=== PATIENT | male | born 1975 | race Caucasian/White ===

== ENCOUNTER 2018-08-09 21:28 | Emergency (ER) | payer MEDICAID, OTHER ==
[~2018-08-09] VITALS: Ht 182.9 cm; Wt 104.3 kg
[2018-08-09] MEDS ORDERED: NORVASC10 MG ORAL (21:36)
[2018-08-09] MEDS ORDERED: HYDROCHLOROTHIA50 MG ORAL (21:36)
[2018-08-09] MEDS ORDERED: SEROQUEL50 MG ORAL (21:36)
[2018-08-09] MEDS ORDERED: PAXIL30 MG ORAL (21:36)
--- NOTE | 2018-08-09 21:40 | NUR ---
ER Nurse Note: Pt came from home c/o constipation since 08/04/18. Pt stated he has the urge to poop but unable to. Pt states 10/10 pain. Abd round, firm. Bowel sounds heard in all quadrants. ERMD at pt side, will continue to montior.
--- NOTE | 2018-08-09 21:42 | Emergency Room Report ---
History of Present Illness General Chief Complaint: Constipation Source: Patient Present Illness HPI Is a 43-year-old male with a history of hypertension and previous gastric bypass. He presents with chief complaint of constipation. He said he hasn't had a bowel movement for the last 5 days. Has the urge but painful to have a bowel movement. No fever or chills. Eating drinking normally. No nausea no vomiting. Tried [id number] Colace without any relief. Denies any recent opioid use. Denies any other complaint. Allergies: Coded Allergies: ACETAMINOPHEN (Verified Allergy, Unknown, 08/09/18) MORPHINE (Verified Allergy, Unknown, 08/09/18) OXYCODONE (Verified Allergy, Unknown, 08/09/18) Patient History Past Medical History: see triage record, old chart reviewed, HTN Past Surgical History: other Pertinent Family History: none Social History: Denies: smoking Immunizations: other Reviewed Nursing Documentation: PMH: Agreed; PSxH: Agreed Nursing Documentation-PMH Past Medical History: No History, Except For Hx Hypertension: Yes Hx Gastrointestinal Problems: Yes - gastric bypass 2005 Review of Systems Eye: Denies: eye pain, blurred vision ENT: Denies: ear pain, nose congestion, throat swelling Respiratory: Denies: cough, shortness of breath Cardiovascular: Denies: chest pain, palpitations Gastrointestinal: Reports: constipation; Denies: abdominal pain, diarrhea, nausea, vomiting Musculoskeletal: Denies: back pain, joint pain Skin: Denies: rash Neurological: Denies: headache, numbness Endocrine: Denies: increased thirst, increased urine Hematologic/Lymphatic: Denies: easy bruising All Other Systems: negative except mentioned in HPI Physical Exam Vital Signs Date Time Temp Pulse Resp B/P (MAP) Pulse Ox O2 Delivery O2 Flow Rate FiO2 08/09/18 21:31 98.2 75 16 153/111 98 Room Air vitals with high blood pressure Sp02 EP Interpretation: reviewed, normal General Appearance: well appearing, no apparent distress, alert Head: normocephalic, atraumatic Eyes: bilateral eye PERRL, bilateral eye EOMI ENT: hearing grossly normal, normal pharynx Neck: full range of motion, supple, no meningismus Respiratory: chest non-tender, lungs clear, normal breath sounds Cardiovascular #1: regular rate, rhythm, no murmur Gastrointestinal: normal bowel sounds, non tender, no mass, no organomegaly, no bruit, non-distended Musculoskeletal: back normal, gait/station normal, normal range of motion Psychiatric: mood/affect normal Skin: warm/dry Medical Decision Making Diagnostic Impression: Primary Impression: Constipation Qualified Codes: K59.00 - Constipation, unspecified ER Course Patient with constipation/obstipation. There is no evidence of any obstruction. There is no air-fluid level. He is eating and drinking without any problem. No vomiting. X-rays show constipation. No relief with enema. We 'll discharge home lactulose and Fleet enemas. Other X-Ray Diagnostic Results Other X-Ray Diagnostic Results : X-Ray ordered: KUB # of Views/Limited Vs Complete: 1 View Indication: Pain EP Interpretation: Yes Interpretation: no dislocation, no soft tissue swelling, nonspecific bowel gas, other - Constipation Impression: Other - constipation Electronically Signed by: Shaheen Zelaya MD Last Vital Signs Date Time Temp Pulse Resp B/P (MAP) Pulse Ox O2 Delivery O2 Flow Rate FiO2 08/09/18 21:31 98.2 75 16 153/111 98 Room Air Status: improved Disposition: HOME, SELF-CARE Condition: Stable Scripts Na Phos,M-B/Na Phos,Di-Ba* (FLEET ENEMA*) 133 Ml Enema 133 ML RECTAL DAILY, #7 ML 0 Refills Prov: Shaheen Zelaya MD 08/09/18 Lactulose (LACTULOSE*) 20 Gm/30 Ml Solution 30 ML ORAL DAILY, #240 ML 0 Refills Prov: Shaheen Zelaya MD 08/09/18 Patient Instructions: Constipation, Adult Additional Instructions: Follow-up with your doctor in 7 days. Return if symptom worsen. Shaheen Zelaya MD Aug 09, 2018 21:42
[2018-08-09 21:45] VITALS: BP 153/111
--- NOTE | 2018-08-09 22:30 | NUR ---
ER Nurse Note: ERMD administered enema; pt stated the enema did not help after administration but had the urge to go. ERMD notified that pt had no BM after insertion.
[2018-08-09] MEDS ORDERED: FLEET ENEMA133 ML RECTAL (22:54)
[2018-08-09] MEDS ORDERED: LACTULOSE20 GM/301 ORAL (22:54)
[2018-08-09] MEDS ORDERED: Fleet's Enema 133ml RECTAL ONE (23:00)
--- NOTE | 2018-08-09 23:16 | NUR ---
ER Nurse Note: Pt seen, treated, medically cleared for discharge by ERMD. Discharge instructions and prescriptions given with repeat verbalization by pt. Instructed pt to follow up with primary care provider within one week. Pt a&ox4, VSS, no signs of distress. ID band removed. Pt left with own transportation.
[2018-08-09 23:17] VITALS: BP 146/100
--- NOTE | 2018-08-10 10:40 | Diagnostic Imaging Report ---
Indication: Abdominal pain Technique: Supine view of the abdomen Comparison: none Findings: There is a moderate amount of retained stool. No definite gaseous distention of large or small bowel. No unusual calcifications or masses Impression: No acute process
== END 2018-08-09 23:17 | disposition home or self-care (01) ==
LOC: EMR 21:48
DX: K59.00 Constipation, unspecified (principal); I10 Essential (primary) hypertension; Z88.6 Allergy status to analgesic agent; Z88.5 Allergy status to narcotic agent
CPT/HCPCS: 74018; 99283